=== PATIENT | female | born 1980 | race African-American/Black ===

== ENCOUNTER 2024-08-23 11:23 | Emergency (ER) | payer OTHER, SELFPAY ==
--- OUTSIDE RECORDS SUMMARY | 2024-08-23 11:25 | XMS_ITS | Data Portability ---
Author Organization [place] - [facility], Main Office Address [address] [place] [address] Assessment Encounter Date Assessment Date Assessment LastModified by Organization Details LastModified Time 09/20/2022 09/20/2022 New x-rays today show continued near anatomic alignment without significant shortening of the 4th metacarpal closed reduction appears to be holding its alignment. We are going to continue with casting for now see her back in 1 week for new x-rays to make sure that this continues to maintain his alignment if it does collapse or become angulated this will require surgical intervention we discussed this in detail today once again she is advised not to use the hand for anything at all for now protected as much as possible. She voiced understanding and agrees with above plan she will call for any further problems difficulties or questions. Not available 09/20/2022 13:33:46 09/27/2022 09/27/2022 Patient returns fracture base of 4th metacarpal right. She is tender and stiff in the cast but overall doing fairly well we discussed the fracture and the likelihood of it moving which is less all the time now. I told her that overall looks satisfactory and should be functionally if not we may have to do an osteotomy later but think it is going to heal where it is and be okay discussed. [email or web address] Not available 09/27/2022 13:05:24 10/04/2022 10/04/2022 Patient is status post fracture base of the 4th metacarpal. The overall alignment is acceptable. Hopefully this will heal where it is told her she needs to be in it for least another 2 weeks. I will see her back at that point remove the cast. [email or web address] Not available 10/04/2022 13:32:13 10/18/2022 10/18/2022 New x-rays today show healing of the fracture overall alignment looks excellent near anatomic in position. She is now going to work on range of motion of her hand and fingers she is a bit stiff from being in the cast. I offered her formal therapy today she declined she wants to work on it on her own for the next 2 weeks. I will see her back in 2 weeks for her next recheck to make sure she is getting full motion if not we will push harder for physical therapy. Today she was placed in a cock-up wrist brace for her best comfort and support this was fitted for her and molded in the office. She can wear this throughout the day take it off multiple times to work on her range of motion. She voiced understanding agrees above plan if she has any further problems difficulties or questions she will call before her next appointment. Not available 10/18/2022 11:57:21 11/01/2022 11/01/2022 Patient has a healed fracture that was mildly displaced base of the 4th metacarpal left hand. X-rays today show excellent healing no malalignment. Her exam today shows excellent function and range of motion equal to the opposite side. At this point she can be dismissed. I will see her back as needed she is going to wean back into her activities as tolerated. If she has any further problems difficulties or questions she is instructed to call she voiced understanding agrees with above plan. Not available 11/01/2022 14:54:46 Plan of Treatment Reminders Order Date Submit Date Provider Last Modified By Organization Details Last Modified Time Details Appointments None record ed. Lab None record ed. Referral None record ed. Procedures None record ed. Surgeries None record ed. Imaging XR, hand, 3 or more view 023 11/02/19 23 [email or web address] [facility] [place], [address], [place], [address], 3 17:05:10 XR, hand, 3 or more view 023 10/19/19 23 [facility] [place], [address], [place], [address], 3 12:20:50 XR, hand, 3 or more view 023 10/05/19 [email or web address] [facility] [place], [address], [place], [address], 3 14:28:48 XR, hand 023 09/28/19 [email or web address] [facility] [place], [address], [place], [address], 3 13:10:53 XR, hand 023 09/21/19 [email or web address] [facility] [place], [address], [place], [address], 3 15:15:18 Medication Orders None record ed. Patient TargetsNo targets recorded. Patient InstructionsNo instructions recorded. Reason for Referral None Reported. Results Created Date Observation Date Name Description Value Unit Range Abnormal Flag Note LastModifiedBy Organization Detail LastModifiedTime 09/13/19 CT, head, w/o contr ast No observ ation record ed. [email or web address] Not Available 2022 09:27:45 09/13/19 XR, hand No observ ation record ed. [email or web address] Not Available 2022 09:27:40 09/14/19 XR, hand, 3 or more view No observ ation record ed. [facility] [place] [address], [place], [address], 09/13/2022 15:23:10 09/21/19 XR, hand No observ ation record ed. [facility] [place] [address], [place], [address], 09/20/2022 13:40:33 09/28/19 XR, hand No observ ation record ed. [email or web address] [facility] [place] [address], [place], [address], 09/27/2022 13:04:54 10/05/19 XR, hand, 3 or more view No observ ation record ed. [facility] [place] [address], [place], [address], 10/04/2022 13:32:39 10/19/19 23 XR, hand, 3 or more view No observ ation record ed. [facility] [place] [address], [place], [address], 10/18/2022 11:57:59 11/02/19 XR, hand, 3 or more view No observ ation record ed. [facility] [place] [address], [place], [address], 11/01/2022 14:55:22 Result Notes None recorded. Problems Name Problem SNOMED Code Status Onset Date Resolution Date Notes Provider Name and Address Organization Details Recorded Time Pain of left hand 6365613649676 03 Active 2022 MILLA Ghotra null, [employer] 14:39:28 Closed fracture of base of fourth metacarpal bone of left hand 6483255589056 9103 Active 2022 HUBER Felipe [address] [facility] [address], [place], [address] , [employer] 15:24:31 Problem Notes None recorded. Procedures Surgical History None recorded. Imaging Results Imaging Date Name Status LastModified by [facility] Details LastModified Time 09/12/2022 CT, head, w/o contrast completed [email or web address] Information not available 09/12/2022 09:27:45 09/12/2022 XR, hand completed [email or web address] Information no t available 09/12/2022 09:27:40 09/13/2022 XR, hand, 3 or more view completed [facility] [place] [address] [facility] [address], [address], 09/13/2022 15:23:10 09/20/2022 XR, hand completed [facility] [place] [address] [facility] [address] [place], [address], 09/20/2022 13:40:33 09/27/2022 XR, hand completed [email or web address] [facility] [place] [address] [facility] [address], [address], 09/27/2022 13:04:54 10/04/2022 XR, hand, 3 or more view completed [email or web address] [facility] [place] [address] [facility] [address], [address], 10/04/2022 13:32:39 10/18/2022 XR, hand, 3 or more view completed [facility] [place] [address] [facility] [address], [address], 10/18/2022 11:57:59 11/01/2022 XR, hand, 3 or more view completed [facility] [place] [address] [facility] [address], [address], 11/01/2022 14:55:22 Procedure Notes None recorded. Medical Equipment None Reported. Allergies Allergen ID Allergen Name Allergen Category Reaction Reaction Severity Criticality Documentation Date Start Date Code Code System Note Provider Name and Address Organization Details Recorded Time 19032 morphine medicatio n hives Not available Not available 09/13/2022 7052 RxNorm MILLA Ghotra, [place] [facility] [place] [facility] [employer] 14:38:32 Medications Name Sig Start Date Stop Date Status Note LastModified by Organization Details LastModified Time ketoconazole 2 % shampoo active Not Available Not Available Not Available fluconazole 150 mg tablet TAKE 2 TABLETS BY MOUTH ONCE PER WEEK FOR 2 WEEKS active Not Available Not Available No t Available tramadol 50 mg tablet TAKE 1 TABLET BY MOUTH EVERY 6 TO 8 HOURS NEEDED active Not Available Not Available No t Available ropivacaine (PF) 5 mg/mL (0.5 %) injection solution Take 15 mg by injection route. 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[employer] [facility] 09/27/2022 12:48:55 Date Recorded Body height Body mass index (BMI) Body weight Provider Name and Address Organization Details Last Updated DateTime 10/04/2022 165.1 cm 29.1 kg/m2 15515.66 MILLA Ervin [employer] [facility] 10/04/2022 13:14:58 Date Recorded Body height Body mass index (BMI) Body weight Provider Name and Address Organization Details Last Updated DateTime 10/18/2022 165.1 cm 31.6 kg/m2 01313.55 MILLA Ervin [employer] [facility] 10/18/2022 10:51:15 Date Recorded Body height Body mass index (BMI) Body weight Provider Name and Address Organization Details Last Updated DateTime 11/01/2022 165.1 cm 31.3 kg/m2 15326.37 carolyn Tirado [employer] [facility] 11/01/2022 14:32:57 Social History Question Answer Notes LastModified by Organizat ion Details LastModified Time Tobacco Smoking Status Never Smoker [employer], [place] [facility] 09/13/2022 14:39:08 What Is Your Level Of Alcohol Consumption? Occasional [email or web address] Information not available 09/13/2022 Sex: Unknown Functional Status None recorded. Mental Status None recorded. Family History Relationship Description Onset Age of this Age Resolved Age Notes LastModified by Organization Details LastModified Time Mother Cerebrovascu lar accident [email or web address] Not available 03/2023 14:38:48 Medical History No medical history recorded. Gynecological HistoryNo gynecological history recorded. Obstetrics History GPAL:G 0 P 0 0 0 0 Past Encounters Encounter ID Performer Location Encounter Start Date Encounter Closed Date Diagnosis/Indication Diagnosis SNOMED-CT Code Diagnosis ICD10 Code Diagnosis Note [id number] HUBER Felipe [facility] [place] [address] [place] [address] 09/13/2022 14:26:40 09/13/2022 16:30:54 Pain of left hand 6959713251 72614 M79.642 Closed fra cture of base of fourth metacarpal bone of left hand 9486159058 1034827 S62.315A [id number] HUBER Felipe [facility] [place] [address] [place] [address] 09/20/2022 13:09:43 09/20/2022 15:15:18 Pain of left hand 9257550341 38142 M79.642 Closed fra cture of base of fourth metacarpal bone of left hand 3928287944 3129714 S62.315D [id number] Familia Méndez MD [facility] [place] [address] [place] [address] 09/27/2022 12:40:49 09/27/2022 13:10:53 Closed fracture of base of fourth metacarpal bone of left hand 3928105854 3857139 S62.315D Pain of left hand 582927 6000 50623 M79.642 [id number] Familia Méndez MD [facility] [place] [address] [place] [address] 10/04/2022 13:12:59 10/04/2022 14:28:48 Closed fracture of base of fourth metacarpal bone of left hand 0583703848 4173262 S62.315D Pain of left hand 200629 0687 59869 M79.642 [id number] HUBER Feliep [facility] [place] [address] [place] [address] 10/18/2022 10:39:23 10/18/2022 12:17:30 Closed fracture of base of fourth metacarpal bone of left hand 0341879434 3490710 S62.315D Pain of left hand 158551 0434 83313 M79.642 [id number] HU[facility]ipe[facility] [place] [address] [place] [address] 11/01/2022 14:30:57 11/01/2022 17:05:10 Pain of left hand 0075836419 41849 M79.642 Closed fra cture of base of fourth metacarpal bone of left hand 1464356186 0428963 S62.315D Health Concerns Section Related Observation LastModified by Organization Detai ls LastModified Time None Recorded Concern Status LastModified by Organization Details LastModified Time None Recorded Advance Directives Directive None Recorded Payers Encounter Date Sequence Insurance Name Policy Number Policy Kelly Covered Member ID Kelly Member ID Guarantor Name 09/20/2022 1 [place] [facility] [id number] 09/27/2022 1 [place] [facility] [place] Mandy [id number] [place] 10/04/2022 1 [place] [facility] [place] Mandy [id number] [place] 10/18/2022 1 [place] [facility] [place] Mandy [id number] [place] Mandy 11/01/2022 1 [place] [id number] Notes Date Note Type Note Provider Name and Address Organization Details Recorded Time 09/20/2022 text/html Patient returns for recheck of her left hand. The patient had a displaced oblique dorsally angulated fracture of the base of the 4th metacarpal after hitting a hard object. She underwent a closed reduction and casting in the office 1 week ago. Overall alignment was significantly improved and she was placed in a short-arm cast. She states today she is doing okay really no discomfort denies any neurovascular deficits no problems with the cast other than it is a little snug but tolerable. We will get new x-rays today we have discussed surgical options in detail if it does move this will require surgical intervention for now she wants to get by with conservative measures she would rather not have surgery. HUBER Felipe [address], [place], [address], [employer] 09/20/2022 13:40:51 09/27/2022 text/html Patient returns for recheck of her left hand. The patient had a displaced oblique dorsally angulated fracture of the base of the 4th metacarpal after hitting a hard object. She underwent a closed reduction and casting in the office 1 week ago. Overall alignment was significantly improved and she was placed in a short-arm cast. She states today she is doing okay really no discomfort denies any neurovascular deficits no problems with the cast other than it is a little snug but tolerable. We will get new x-rays today we have discussed surgical options in detail if it does move this will require surgical intervention for now she wants to get by with conservative measures she would rather not have surgery. Familia Méndez MD [address], [place], [address], [employer] 09/27/2022 13:05:42 10/04/2022 text/html Patient returns about 4 weeks status post fracture left 4th metacarpal base. She is comfortable in a cast but is tiring of having on this point. Familia Méndez MD [address], [place], [address], [employer] 10/04/2022 13:32:56 10/18/2022 text/html Patient returns for out of cast x-rays, she has 5-6 weeks status post injury she had a mildly displaced fracture at the base of the 4th metacarpal. She has been in a cast and doing well she is comfortable. She denies any neurovascular deficits, the cast was removed today she has a bit of stiffness in the fingers from being in the cast but overall is doing well. Denies any skin problems today still has a little bit of tenderness at the base of the 4th metacarpal in the left hand but much less than previously. She comes in today for new x-rays and recheck. HUBER Felipe [address], [place], [address], [employer] [facility] 10/18/2022 11:58:21 11/01/2022 text/html Patient returns for final recheck of her left hand. The patient is now 2 months status post injury where she had a mildly displaced fracture of the base of the 4th metacarpal. She was casted then put in a splint she now comes in for final x-rays and recheck for the past 2 weeks she has been working on range of motion she was quite stiff having trouble making a fist. She comes in today demonstrating that she can make a full fist she has excellent full range of motion of her hand wrist and fingers states it still feels a little stiff at the base of the hand where the fracture was located. Has no tenderness here just mainly some aching pain if she tries to do anything heavy repetitive 5 advised her to give a little more time she is making great progress with her range of motion last time she could not bring her fingers down all the way today she can. Denies any swelling no loss of motion no dysfunction or weakness in the left hand wrist or fingers. HUBER Felipe [address], [place], [address], [employer] 11/01/2022 14:55:49 OBGyn Episode No OBEpisode recorded.
--- OUTSIDE RECORDS SUMMARY | 2024-08-23 11:25 | XMS_ITS | Clinical Summary ---
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 Name Role Phone Unavailable Primary Care Provider Unavailabl e Allergies Active Allergy Reactions Criticality Noted Date Comments Morphine Hives High 08/28/2015 Medications No known medications Active Problems No known active problems Family History Medical History Relation Name Comments Other Father Other Mother Relation Name Status Comments Brother Alive Father Mother Social History Tobacco Use Types Packs/Day Years Used Date Smoking Tobacco: Never Smokeless Tobacco: Never Alcohol Use Standard Drinks/Week Comments Yes 1 (1 standard drink = 0.6 oz pur e alcohol) Comments No Sex and Gender Information Value Date Recorded Sex Assigned at Not on file Legal Sex Female 12:02 PM [employer] Gender Identity Not on file Sexual Orientation Not on file Last Filed Vital Signs Vital Sign Reading Time Taken Comments Blood Pressure 141/86 11/21/2020 12:44 PM CDT Pulse 62 11/21/2020 12:44 PM CDT Temperature 36.8 C (98.3 F) 11/21/2020 12:44 PM CDT Respiratory Rate 18 11/21/2020 12:44 PM CDT Oxygen Saturation 99% 11/21/2020 12:44 PM CDT Inhaled Oxygen Concentration - - Weight 72.6 kg (160 lb) 11/21/2020 12:44 PM CDT Height 167.6 cm (5' 6 ) 11/21/2020 12:44 PM CDT Body Mass Index 25.82 11/21/2020 12:44 PM CDT Plan of Treatment Health Maintenance Due Date Last Done Comments DTAP/TDAP/TD VACCINES (1 - Tdap) 1999 HEPATITIS B VACCINES (1 of 3 - 19+ 3-dose series) 1999 CERVICAL CANCER SCREENING 2010 BREAST CANCER SCREENING 2020 INFLUENZA VACCINE (#1) 2024 HPV VACCINES Aged Out No longer eligi ble based on patient's age to complete this topic PNEUMOCOCCAL VACCINE 0-64 YEARS Aged Out No longer eligible based on patient's age to complete this topic Insurance [employer] OPEN ACCESS HMO CIG[employer] OA HMO POS
[2024-08-23 11:32] VITALS: BP 111/86; PULSE 62; RESP 16; TEMP 36.4; O2SAT 100
[2024-08-23 13:14] LABS: EDCOVIDSCREEN Negative (Negative); EDINFLUASCREEN Negative (Negative); EDINFLUBSCREEN Negative (Negative)
--- NOTE | 2024-08-23 13:21 | ED_ITS ---
HPI - General Adult General Chief complaint: Upper Respiratory Infection Stated complaint: Congestion/Headache/Chest Congestion/Dizziness Source: patient Mode of arrival: ambulatory Limitations: no limitations History of Present Illness HPI narrative: Patient presents for evaluation of sick symptoms for last 5 days. Symptoms include sinus congestion, postnasal drainage, cough, generalized body aches, nausea, decreased appetite, chills, and left-sided otalgia. No fever, shortness of breath, vomiting, diarrhea. One of her coworkers was sick last week. She has taken jl-seltzer cold and sinus and TheraFlu for her symptoms. She feels like she is getting. She does not smoke. Related Data Allergies Allergy/AdvReac Type Severity Reaction Status Date / Time No Known Allergies Allergy Unverified 09/10/14 01:02 Review of Systems Review of Systems: CONSTITUTIONAL: Reports chills. Denies fever EYES: Denies visual changes, redness, or discharge. ENT: Reports sinus congestion, postnasal drainage, left-sided otalgia. CARDIOVASCULAR: Denies chest pain, palpitations, or edema. RESPIRATORY: Reports cough. Denies shortness of breath. GASTROINTESTINAL: Reports nausea. Denies abdominal pain, vomiting, diarrhea. GENITOURINARY: Denies dysuria or hematuria. SKIN: Denies rash or itching. MUSCULOSKELETAL: Reports generalized body aches. NEUROLOGIC: Denies headache, numbness, dizziness, or weakness. PSYCHIATRIC: Denies anxiety or depression. PMFSH Past Medical History Medical History No pertinent past medical history Surgical History Surgical History No pertinent past surgical history Family History Family History (Updated 08/23/24 @ 13:24 by DURAN AdenP, ) Mother Family history non-contributory Social History Social History Smoking status: Never smoker Substance use: never Gender identity (if verbalized by the patient): Female Spiritual care concerns: No Exam Narrative: GENERAL: Well-appearing, well-nourished, and in no acute distress. HEAD: Normocephalic, atraumatic. EYES: PERRLA and EOMI. ENT: Nares clear, no rhinorrhea or epistaxis. Mucous membranes moist. Oropharynx without tonsillar hypertrophy exudate or other lesions. Bilateral TMs pearly borges nonbulging NECK: Supple. No adenopathy or masses. No carotid bruits or JVD CHEST: Clear to auscultation. No respiratory distress. No wheezes rales or rhonchi HEART: Regular rate and rhythm. No murmur heard. Normal peripheral pulses. ABDOMEN: Soft, nontender, nondistended, normal active bowel sounds. EXTREMITIES: Normal range of motion. No edema. SKIN: Warm, dry, no rash. NEURO: No focal deficits. Alert and oriented x3. PSYCH: Normal mood and affect. Course Course Emergency Course: This is a 44-year-old female who presented for evaluation of sick symptoms. COVID and influenza were negative. Exam is consistent with acute viral illness. Ycgo-xnh-owlclbu agents for symptom management. Increase hydration. Follow up with primary provider. Go to the ER for worsening symptoms. Patient in agreement with plan of care. Level of Care: Express Care Visit Vital Signs Vital signs: Vital Signs Temperature 36.4 C L 08/23/24 11:32 Pulse Rate 62 08/23/24 11:32 Respiratory Rate 16 08/23/24 11:32 Blood Pressure 111/86 08/23/24 11:32 Pulse Oximetry 100 08/23/24 11:32 Oxygen Delivery Room Air 08/23/24 11:32 Temperature 36.4 C L 08/23/24 11:32 Pulse Rate 62 08/23/24 11:32 Respiratory Rate 16 08/23/24 11:32 Blood Pressure 111/86 08/23/24 11:32 Pulse Oximetry 100 08/23/24 11:32 Oxygen Delivery Room Air 08/23/24 11:32 Medical Decision Making Vital Signs Vital Signs: Vital Signs Temperature 36.4 C L 08/23/24 11:32 Pulse Rate 62 08/23/24 11:32 Respiratory Rate 16 08/23/24 11:32 Blood Pressure 111/86 08/23/24 11:32 Pulse Oximetry 100 08/23/24 11:32 Oxygen Delivery Room Air 08/23/24 11:32 Temperature 36.4 C L 08/23/24 11:32 Pulse Rate 62 08/23/24 11:32 Respiratory Rate 16 08/23/24 11:32 Blood Pressure 111/86 08/23/24 11:32 Pulse Oximetry 100 08/23/24 11:32 Oxygen Delivery Room Air 08/23/24 11:32 Lab Data Labs: Lab Results 08/23/24 Range/Units 13:13 POC Influenza A Ag Negative (Negative) POC Influenza B Ag Negative (Negative) POC SARS CoV-2 Ag Negative (Negative) Discharge Plan Discharge Clinical Impression: Acute viral syndrome Patient Disposition: Home, Self-Care Condition: Stable Instructions: Antibiotic Form, Viral Syndrome (ED) Patient Language: Estonian Follow-up/Referrals: [facility],Maria Esther Castillo MD [Primary Care Provider] - Stand Alone Forms: Work/School Release IP Time of Disposition: 13:13
== END 2024-08-23 13:15 | disposition home or self-care (01) ==
PROVIDERS: Emergency Provider Nurse Practitioner; PCP Emergency Medicine
DX: B34.9 Viral infection, unspecified (principal); Z20.822 Contact with and (suspected) exposure to COVID-19
CPT/HCPCS: 87426; 87804; 99202; G0463